=== PATIENT | male | born 1995 | race Caucasian/White ===

== ENCOUNTER 2018-12-14 09:57 | Emergency (ER) | payer OTHER ==
[~2018-12-14] VITALS: Ht 177.8 cm; Wt 88.5 kg
[2018-12-14 09:57] VITALS: BP 117/87
[2018-12-14] MEDS ORDERED: diphenhydrAMINE HCL 50 MG CAPSULE ONE (10:32)
[2018-12-14] MEDS ORDERED: FAMOTIDINE (20 MG) 20 MG TABLET ONE (10:32)
[2018-12-14] MEDS: FAMOTIDINE (20 MG) 20 MG TABLET PO ONE (10:38)
[2018-12-14] MEDS: diphenhydrAMINE HCL 25 MG CAPSULE PO ONE (10:38)
== END 2018-12-14 10:47 | disposition home or self-care (01) ==
LOC: ER 10:07
DX: L50.9 Urticaria, unspecified (principal); R07.89 Other chest pain; Z88.0 Allergy status to penicillin
CPT/HCPCS: 93005; 99283; Q0163

== ENCOUNTER 2021-09-27 04:07 | Emergency (ER) | payer OTHER ==
[~2021-09-27] VITALS: Ht 177.8 cm; Wt 99.8 kg
[2021-09-27 04:40] VITALS: BP 126/82
--- NOTE | 2021-09-27 04:52 | NUR ---
Patient discharged to home in stable condition. Written and verbal after care instructions given. Patient verbalizes understanding of instruction.
[2021-09-27] MEDS ORDERED: IBUPROFEN 400 MG TABLET PO ONE (05:00)
== END 2021-09-27 05:03 | disposition home or self-care (01) ==
LOC: ER 04:19
DX: S86.802A Unspecified injury of other muscle(s) and tendon(s) at lower leg level, left leg, initial encounter (principal); Z88.0 Allergy status to penicillin; V89.2XXA Person injured in unspecified motor-vehicle accident, traffic, initial encounter; Y93.89 Activity, other specified; Y92.89 Other specified places as the place of occurrence of the external cause; Y99.8 Other external cause status